=== PATIENT | female | born 1990 | race Caucasian/White ===

== ENCOUNTER 2017-09-09 11:07 | Inpatient (IN) | payer OTHER ==
[~2017-09-09] VITALS: Ht 157.5 cm; Wt 55.8 kg
[~2017-09-09 11:07] MED LIST: AUGMENTIN 875875 MG PO; CIPRODEX OTIC7.5 ML OTIC; CIPROFLOXACIN500 M1 PO; FLEXERIL PO; HYDROCODON-ACE1 EAC8 PO; HYDROCODONE-AP1 EAC6 PO; IBUPROFEN 600600 M1 PO; NAPROSYN500 MG PO; NOHOMEMEDICATIONS; NORCO 5-325 TA1 EACH PO; ONDANSETRON HCL4 M2 PO
[2017-09-09 11:20] VITALS: BP 102/71
[2017-09-09] MEDS ORDERED: PROZAC10 MG PO (11:23)
[2017-09-09] MEDS ORDERED: CLONAZEPAM 1 MG1 M1 PO ×2 (11:23→11:24)
[2017-09-09] MEDS ORDERED: VYVANSE10 MG PO (11:24)
[2017-09-09 11:56] LABS: ABSOLUTE BASOPHILS 0.1 thou/uL (0.0-0.2); ABSOLUTE EOSINOPHILS 0.4 thou/uL (0.0-0.7); ABSOLUTE LYMPHOCYTES 2.5 thou/uL (0.8-5.3); ABSOLUTE NEUTROPHILS 8.5 thou/uL (1.6-8.1); BASOPHILS 0.7 %; HEMATOCRIT 42.5 % (37.0-47.0); HEMOGLOBIN 14.1 gm/dL (12.0-15.0); MCH 30.7 pg (26.0-34.0); MCHC 33.2 g/dL (28.0-37.0); MCV 92.4 fL (80.0-100.0); MONOCYTES 8.1 %; MPV 6.6 fl. (7.2-11.1); NUCLEATED RBCS 0 /100WBC; PLATELET COUNT* 343 thou/uL (150-400); POLYS 68.2 %; RDW-CV 13.1 % (10.5-14.5); WBC 12.4 thou/uL (4.0-11.0)
[2017-09-09 12:48] LABS: CALCIUM 8.8 mg/dL (8.5-10.1); CREATININE 0.8 mg/dL (0.6-1.3); POTASSIUM 3.9 mmol/L (3.5-5.1)
[2017-09-09 12:53] LABS: ALBUMIN 3.7 g/dL (3.4-5.0); TOTAL BILIRUBIN 0.6 mg/dL (<0.1-1.0); TOTAL PROTEIN 7.1 g/dL (6.4-8.2)
[2017-09-09 13:32] LABS: URINE BILIRUBIN NEGATIVE (Negative); URINE BLOOD NEGATIVE (Negative); URINE CLARITY CLEAR; URINE COLOR YELLOW; URINE GLUCOSE-RANDOM NEGATIVE (Negative); URINE KETONES NEGATIVE (Negative); URINE LEUKOCYTES-REFLEX NEGATIVE (Negative); URINE NITRITE-REFLEX NEGATIVE (Negative); URINE PROTEIN NEGATIVE (Negative); URINE SPECIFIC GRAVITY 1.015 (1.005-1.030); URINE UROBILINOGEN 0.2 E.U./dl (0.2-1.0)
[2017-09-09 13:37] LABS: AMP/METHAMP POSITIVE (Negative); BARBITURATES Negative (Negative); BENZODIAZEPINES Negative (Negative); COCAINE Negative (Negative); METHADONE Negative (Negative); OPIATES POSITIVE (Negative); PCP Negative (Negative); THC POSITIVE (Negative)
[2017-09-09 17:07] VITALS: BP 99/63
[2017-09-09 17:53] VITALS: BP 116/61
--- NOTE | 2017-09-09 19:17 | NUR ---
REPORT TAKEN FROM JOSE DUEÑAS IN ER, AGREE WITH REPORT. PATIENT ARRIVED ON UNIT AT 1720. A&OX4, ROOM AIR, IV LEFT AC FLUIDS INFUSSING. UP AD ENMA, INSTRUCTED TO CALL FOR ASSISTANCE, VERBALIZES UNDERSTANDING. C/O PAIN IN LEFT INGUINAL LYMPHADENOPATHY, RELIEF WITH PAIN MEDICATION. I&D DONE IN ED MINIMAL FLUID TAKEN FROM SITE AND SENT TO LAB. SERGURY SEEN PATIENT AT BEDSIDE, STATES ANOTHER I&D T+1. NO OTHER CONCERNS AT THIS TIME. APPROPRIATE AND COOPORATIVE WITH CARE.
[2017-09-09 23:43] VITALS: BP 90/46
[2017-09-10 03:22] LABS: ABSOLUTE BASOPHILS 0.1 thou/uL (0.0-0.2); ABSOLUTE EOSINOPHILS 0.3 thou/uL (0.0-0.7); ABSOLUTE MONOCYTES 0.7 thou/uL (0.0-1.2); BASOPHILS 0.6 %; EOSINOPHILS 3.3 %; HEMATOCRIT 36.6 % (37.0-47.0); HEMOGLOBIN 12.4 gm/dL (12.0-15.0); LYMPHOCYTES 21.6 %; MCH 31.3 pg (26.0-34.0); MCHC 33.8 g/dL (28.0-37.0); MCV 92.6 fL (80.0-100.0); MONOCYTES 7.8 %; MPV 6.8 fl. (7.2-11.1); NUCLEATED RBCS 0 /100WBC; PLATELET COUNT* 289 thou/uL (150-400); POLYS 66.7 %; RBC 3.95 mil/uL (4.20-5.00); RDW-CV 13.1 % (10.5-14.5)
[2017-09-10 03:30] LABS: CALCIUM 7.7 mg/dL (8.5-10.1); CREATININE 0.8 mg/dL (0.6-1.3); POTASSIUM 3.8 mmol/L (3.5-5.1)
--- NOTE | 2017-09-10 06:25 | NUR ---
PATIENT SLEPT MOST OF THE NIGHT. IV FLUIDS CONTINUE TO INFUSE AT 150 ML. IV VANC WAS GIVEN ORDERED. PATIENT WAS GIVEN PAIN MEDICINE THREE TIMES THIS SHIFT. WILL CONTINUE TO MONITOR.
[2017-09-10 07:35] VITALS: BP 90/55
--- NOTE | 2017-09-10 12:58 | CON ---
[address] [address] CONSULTATION Name: ELIJANNIE J Room: [address] IN M.R.#: [id number] Admission: 09/09/17 Attend Phys: Cesar Grove MD Discharge: Date of : 88 Report #: [id number] THIS REPORT FOR: //name// CC: Cesar Grove [facility] physician/PCP DATE OF SERVICE: 09/09/2017 ATTENDING PHYSICIAN: Cesar Grove MD REASON FOR EVALUATION: Skin and soft tissue infection with abscess, left inguinal site. HISTORY OF PRESENT ILLNESS: Chart reviewed, patient examined. This is a 27-year-old woman with history of Crohn's, although she is not on treatment. She has a history of "boils" and developed a papular type lesion in the labial site apparently shortly after shaving. It increased over the course of hours to days, became quite painful and the efforts to drain it were unsuccessful and she did present to the Emergency Room, did do a bedside I and D. She has a significant pain. Gram stain did show gram-positive cocci. Lactic acid was 0.9. 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 ALLERGIES: None known. MEDICATIONS: Include pantoprazole, vancomycin, enoxaparin, hydrocodone, fentanyl as needed, hydralazine, ondansetron. PAST MEDICAL HISTORY: As noted above. SOCIAL HISTORY: Does smoke cigarettes, occasional ethanol. No illicit drug use. FAMILY HISTORY: Noncontributory. REVIEW OF SYSTEMS: As above. Denies dyspnea. No gastrointestinal related complaints, specifically abdominal pain, nausea, emesis or diarrhea. FAMILY HISTORY: Noncontributory. PHYSICAL EXAMINATION: GENERAL: She is alert, cooperative, mild to moderate distress. She is lucid. VITAL SIGNS: Temperature 98.5, pulse 91, respirations 16, blood pressure 93/61. SKIN: Warm, dry, no rashes. HEENT: Unremarkable. NECK: [place] [address] CONSULTATION Name: ESMEMALORIEJANNIE J Room: [address] IN [facility]#: [id number] Admission: 09/09/17 Attend Phys: Cesar Grove MD Discharge: Date of : 88 Report #: [id number] LUNGS: Clear to auscultation. HEART: Regular. I do not appreciate a murmur. ABDOMEN: Soft, nontender. EXTREMITIES: Left inguinal area has the incision with the packing material in place, which has ribbon gauze. It is quite tender to palpation locally. There is a moderate to marked degree of inflammation. There is some serosanguineous type drainage at this point. RECTAL: Deferred. LABORATORY DATA: Negative test. CBC: White count of 12.4, H and H 14.1 and 42.5, platelets of 343. Lactic acid 0.9. Electrolytes: Sodium 136, potassium 3.9, chloride 103, bicarbonate is 30, BUN and creatinine 9 and 0.8. LFTs unremarkable. Albumin of 3.7, total protein 7.1. Estimated GFR 85. Cultures pending. Gram stain did show rare gram-positive cocci. Urine culture pending. Urinalysis unremarkable, positive for amphetamine, methamphetamine, marijuana and opiates. ASSESSMENT: Left inguinal skin and soft tissue with abscess. Suspect staphylococcal etiology. Continue the vancomycin for now. Has a history of methicillin resistant Staphylococcus aureus exposure. At this point, I do not think there is a necessity to do a formal surgery. It seems to be draining. We will see how she responds clinically and continue packing, wound care, symptomatic pain control. We will await culture results. <ELECTRONICALLY SIGNED> By: Edvin Jason MD 09/10/17 1258 [id number] Jason MD /nt
--- NOTE | 2017-09-10 14:57 | NUR ---
CM SPOKE TO THE PATIENT TO DISCUSS HOME SITUATON, DISCHARGE PLANNING, AND TO INFORM OF THE ROLE OF CM. PATIENT ALERT, ORIENTED, AND INDEPENDENT WITH ADL'S. PATIENT WORKS AND DRIVES. PATIENT USES 0 DME. PATIENT HAS NO HX OF HH. PATIENT DOES NOT CURRENTLY HAVE INSURANCE. CM PROVIDED PATIENT A COMMUNITY RESOURCE LIST, PRESCRIPTION ASSISTANCE CARD, AND A SAFETY NET CLINIC LIST. CM WILL REMAIN AVAILABLE TO ASSIST AND FOLLOW NEEDED.
[2017-09-10 15:30] VITALS: BP 90/47
[2017-09-10 15:55] VITALS: BP 90/47
[2017-09-10] MEDS ORDERED: MINOCIN100 MG PO (15:55)
--- NOTE | 2017-09-10 17:30 | NUR ---
PATIENT A&OX4, ROOM AIR, IV LEFT AC FLUIDS INFUSSING. UP AD ENMA, STEADY GAIT. ABSCESS IN LEFT INGUINAL AREA CAUSING PAIN, RELIEF WITH MEDICATION. D/C PICTURE NOT TAKEN, LEAVING BEFORE 24 HOURS AFTER ADMISSION. PATIENT DISCHARGED TODAY. PERSCRIPTION GIVEN FOR HOME ANTIBIOTICS. EDUCATION ON WARM COMPRESSES. REVIEWED DISCHARGE PAPERWORK WITH PATIENT, VERBALIZES UNDERSTANDING. NO FURTHER QUESTIONS AT THIS TIME. LEFT UNIT AT 1700 VIA W/C WITH NURSING STAFF. ALL BELONGIGNS TAKEN WITH PATIENT, NOTHING LEFT BEHIND. APPROPRAITE AND COOPORATIVE WITH CARE.
== END 2017-09-10 17:00 | disposition home or self-care (01) | DRG 580 ==
LOC: M.ERS 11:07 → M.3W 12:42 → M.TBA-ER 12:42 → M.3W 17:02
PROVIDERS: Family Medicine; Nurse Practitioner Family; ADMIT Internal Medicine
PROC: 0J9C0ZZ Drainage of Pelvic Region Subcutaneous Tissue and Fascia, Open Approach (ICD-10-PCS; principal; 2017-09-09)
DX: L03.314 Cellulitis of groin (principal); R65.10 Systemic inflammatory response syndrome (SIRS) of non-infectious origin without acute organ dysfunction; F17.210 Nicotine dependence, cigarettes, uncomplicated; L02.214 Cutaneous abscess of groin; Z79.899 Other long term (current) drug therapy

== ENCOUNTER 2017-11-16 00:31 | Emergency (ER) | payer OTHER ==
[~2017-11-16] VITALS: Ht 152.4 cm; Wt 59.0 kg
[~2017-11-16 00:31] MED LIST changes: +CLONAZEPAM 1 MG1 M1 PO; +MINOCIN100 MG PO; +PROZAC10 MG PO; +VYVANSE10 MG PO
[2017-11-16 00:41] VITALS: BP 114/80
== END 2017-11-16 01:05 | disposition home or self-care (01) ==
LOC: M.ERS 00:31
DX: T19.2XXA Foreign body in vulva and vagina, initial encounter (principal); F17.210 Nicotine dependence, cigarettes, uncomplicated